=== PATIENT | male | born 1965 | race Caucasian/White ===

== ENCOUNTER → 2023-07-08 06:37 | Day surgery (SDC) | payer BC, SELFPAY | LOC: GI 06:37 | PROVIDERS: ATTENDING PHYSICIAN Specialist; FAMILY PHYSICIAN Physician Assistant Medical | DX: Z12.11 Encounter for screening for malignant neoplasm of colon (principal); Z86.010 Personal history of colon polyps | CPT/HCPCS: G0105 ==

== ENCOUNTER → 2023-07-18 13:41 | Outpatient (REF) | payer SELFPAY | LOC: RAD 13:41 | PROVIDERS: ATTENDING PHYSICIAN Physician Assistant Medical | DX: E78.00 Pure hypercholesterolemia, unspecified (principal) | CPT/HCPCS: 75571 ==

== ENCOUNTER → 2023-08-01 | Outpatient (REF) | payer BC, SELFPAY | LOC: DHSLP | PROVIDERS: ATTENDING PHYSICIAN Internal Medicine; FAMILY PHYSICIAN Physician Assistant Medical | DX: G47.33 Obstructive sleep apnea (adult) (pediatric) (principal) | CPT/HCPCS: 95800 ==

== ENCOUNTER → 2025-01-06 07:11 | Outpatient (REF) | payer BC, SELFPAY | LOC: RCS 07:11 | PROVIDERS: ATTENDING PHYSICIAN Internal Medicine; FAMILY PHYSICIAN Physician Assistant Medical | DX: R07.89 Other chest pain (principal) | CPT/HCPCS: 93017 ==